=== PATIENT | male | born 1945 | race Caucasian/White ===

== ENCOUNTER → 2017-05-29 | Outpatient (CLI) | payer MEDICARE ==
[~2017-05-29] MED LIST: HEPARIN for IV BOLUS 10,000 UNIT/10 ML VIAL.; IOHEXOL 300 MG/ML 100ML VIAL.; IOHEXOL 350 MG/ML 100 ML VIAL.; IV 1/2 NORMAL SALINE 1,000 ML IV; LIDOCAINE 2% 20 ML VIAL.; MIDAZOLAM HCL/PF 2 MG/2 ML VIAL.; NITROGLYCERIN 200 MCG/2 ML SYRINGE FOR CATH/VASC LAB.; VERAPAMIL 5 MG/2 ML VIAL.; fentaNYL PF VIAL 100 MCG/2 ML VIAL
[2017-05-29 07:03] LABS: HEMATOCRIT 41.9 % (39.0-53.0); HEMOGLOBIN 14.1 g/dL (13.0-17.5); MEAN CORPUSCULAR HEMOGLOBIN 32 pg (25-35); MEAN CORPUSCULAR HGB CONC 34 g/dL (31-37); MEAN CORPUSCULAR VOLUME 94 fL (79-100); PLATELET COUNT 246 x10^3/uL (140-400); RED BLOOD COUNT 4.48 x10^6/uL (4.30-5.70); RED CELL DISTRIBUTION WIDTH 13.5 % (11.5-14.5); WHITE BLOOD COUNT 6.2 x10^3/uL (4.0-11.0)
[2017-05-29 07:08] LABS: ANION GAP 8 (6-14); BLOOD UREA NITROGEN 27 mg/dL (8-26); CALCIUM 8.5 mg/dL (8.5-10.1); CARBON DIOXIDE 27 mmol/L (21-32); CHLORIDE 104 mmol/L (98-107); CREATININE 1.3 mg/dL (0.7-1.3); GFR 54.3; GLUCOSE 102 mg/dL (70-99); POTASSIUM 3.4 mmol/L (3.5-5.1); SODIUM 139 mmol/L (136-145)
[2017-05-29 07:15] LABS: PROTHROMBIN TIME PATIENT 12.9 SEC (11.7-14.0)
[2017-05-29] MEDS: IOHEXOL 350 MG/ML 100 ML VIAL. IART (09:18)
[2017-05-29] MEDS: MIDAZOLAM HCL/PF 2 MG/2 ML VIAL. IV (09:19)
[2017-05-29] MEDS: fentaNYL PF VIAL 100 MCG/2 ML VIAL IV (09:19)
[2017-05-29] MEDS: HEPARIN for IV BOLUS 10,000 UNIT/10 ML VIAL. IART (09:21)
[2017-05-29] MEDS: LIDOCAINE 2% 20 ML VIAL. IJ (09:21)
[2017-05-29] MEDS: VERAPAMIL 5 MG/2 ML VIAL. IART (09:21)
[2017-05-29] MEDS: NITROGLYCERIN 200 MCG/2 ML SYRINGE FOR CATH/VASC LAB. IART (09:21)
[2017-05-29] MEDS: HEPARIN for IV BOLUS 10,000 UNIT/10 ML VIAL. IV (09:22)
== END | disposition home or self-care (01) ==
LOC: CCL 06:33
DX: I25.10 Atherosclerotic heart disease of native coronary artery without angina pectoris (principal); I10 Essential (primary) hypertension; F41.9 Anxiety disorder, unspecified; Z72.89 Other problems related to lifestyle
CPT/HCPCS: 36415; 80048; 85027; 85610; 93458; 93571; 99152; 99153; C1769; C1892; J1644; J2250; J3010; J3490; Q9967

== ENCOUNTER → 2020-08-04 | Outpatient (CLI) | payer MEDICARE ==
[2017-05-29 11:50] VITALS: BP 119/79
[~2020-08-04] MED LIST changes: +ALFU10TA4 PO; +ALPR0.25 PO; +AMLO2.5T2 PO; +ASPI-630 PO; -HEPARIN for IV BOLUS 10,000 UNIT/10 ML VIAL.; -IOHEXOL 300 MG/ML 100ML VIAL.; -IOHEXOL 350 MG/ML 100 ML VIAL.; -IV 1/2 NORMAL SALINE 1,000 ML IV; -LIDOCAINE 2% 20 ML VIAL.; +LIDOCAINE 2%/EPI 1:100,000 20 ML VIAL. INJ ONE; -MIDAZOLAM HCL/PF 2 MG/2 ML VIAL.; -NITROGLYCERIN 200 MCG/2 ML SYRINGE FOR CATH/VASC LAB.; +RANI150T2 PO; +SUCR1TAB PO; -VERAPAMIL 5 MG/2 ML VIAL.; -fentaNYL PF VIAL 100 MCG/2 ML VIAL
--- NOTE | 2020-08-04 16:57 | RAD ---
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 Several microcalcifications identified. There is no evidence of malignancy. Imaging and pathology are concordant. Recommend clinical follow-up to evaluate for causes of gynecomastia. No imaging follow-up is suggeste d in the absence of significant physical exam changes. End of addendum: Electronically signed by: Igor Diaz MD (08/12/2020 4:51 PM) [facility] OR[facility] US GDE NDL BX/ASPIR/INJ/LOC, MG DIAGNOSTICUNILAT MAMMO Clinical Indication: Reason: Right Breast mass Biopsy 900 3 CMFN : Comparison: Bilateral diagnostic mammogram and right breast ultrasound July 21, 2020, [facility]. Findings: There is a small artery just inferior to the target. Lidocaine with epinephrine will be utilized. Procedure: Relative benefits, risks including bleeding, infection, damage to blood vessels, and pain ; and alternatives to the procedure were discussed and written informed consent was obtained. With sterile technique, local anesthesia and ultrasound guidance, percutaneous biopsy was performed w ith a 14-gauge needle and 4 passes were obtained through the target. Needle removed, hemostasis achie barbie. A marker was placed, and post procedure CC and ML views were obtained. The biopsy clip is in the expe cted location, 9:00 A position. The procedure was well tolerated. There is no immediate complication. Impression: Ultrasound guided breast biopsy. Pathology is pending. Electronically signed by: Igor Diaz MD (08/04/2020 4:55 PM) [facility]
--- NOTE | 2020-08-04 16:57 | RAD ---
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 Several microcalcifications identified. There is no evidence of malignancy. Imaging and pathology are concordant. Recommend clinical follow-up to evaluate for causes of gynecomastia. No imaging follow-up is suggeste d in the absence of significant physical exam changes. End of addendum: Electronically signed by: Igor Diaz MD (08/12/2020 4:51 PM) [facility] ORIG[facility]AL [facility] US GDE NDL BX/ASPIR/INJ/LOC, MG DIAGNOSTICUNILAT MAMMO Clinical Indication: Reason: Right Breast mass Biopsy 900 3 CMFN : Comparison: Bilateral diagnostic mammogram and right breast ultrasound July 21, 2020, [facility]. Findings: There is a small artery just inferior to the target. Lidocaine with epinephrine will be utilized. Procedure: Relative benefits, risks including bleeding, infection, damage to blood vessels, and pain ; and alternatives to the procedure were discussed and written informed consent was obtained. With sterile technique, local anesthesia and ultrasound guidance, percutaneous biopsy was performed w ith a 14-gauge needle and 4 passes were obtained through the target. Needle removed, hemostasis achie barbie. A marker was placed, and post procedure CC and ML views were obtained. The biopsy clip is in the expe cted location, 9:00 A position. The procedure was well tolerated. There is no immediate complication. Impression: Ultrasound guided breast biopsy. Pathology is pending. Electronically signed by: Igor Diaz MD (08/04/2020 4:55 PM) [facility]
--- NOTE | 2020-08-07 11:16 | PATHOLOGY ---
[facility] Accession Number: [id number] . 01 Material submitted: . breast - RIGHT BREAST TISSUE. Modifiers: right . 01 Clinical history: . RIGHT BREAST MASS 900 3CM FN . 02 Diagnosis: Breast tissue, right breast mass 9:00 needle biopsies: - Gynecomastia with dense stromal sclerosis, duct ectasia, and focal sclerosing adenosis. - Several microcalcifications identified. (JPM:maite; 08/07/2020) S 08/07/2020 1006 Local . 02 Comment: There is no evidence of malignancy. (JPM:maite; 08/07/2020) . 02 Electronically signed: . Krishna Aguilar MD, Pathologist NPI- [id number] . 01 Gross description: . Received in formalin labeled "Rafy Sigala, Rt breast 900 3 cm FN" are multiple treviño-white cylindrical soft tissue cores measuring in aggregate 2.2 x 1.2 x 0.2 cm. The specimen is submitted entirely in cassettes A1-A3. The specimen is removed from the patient at 1443 and placed in formalin at 1444 on 08/04/2020. The specimen is removed from formalin at 1850 on 08/06/2020. ([facility]; 08/06/2020) SYC/C 08/06/2020 0812 Local . 02 Pathologist provided ICD-10: N62, N60.41, N60.21 . 02 CPT . 669730 Specimen Comment: A courtesy copy of this report has been sent to [phone], [phone] Specimen Comment: [phone], Specimen Comment: Report sent to ,DR EARLY / DR IVY Performed at: 01 [facility] [address], [place], [place] [id number] MD Moncho Nguyễn MD Phone: [phone] Performed at: 02 [facility] [address], [place] [id number] MD Krishna Aguilar MD Phone: [phone]
== END | disposition home or self-care (01) ==
LOC: US 13:50
PROVIDERS: ATTEND Surgery
DX: N63.13 Unspecified lump in the right breast, lower outer quadrant (principal); R92.8 Other abnormal and inconclusive findings on diagnostic imaging of breast; N60.41 Mammary duct ectasia of right breast; N60.21 Fibroadenosis of right breast; I10 Essential (primary) hypertension; K21.9 Gastro-esophageal reflux disease without esophagitis; F41.9 Anxiety disorder, unspecified; Z85.828 Personal history of other malignant neoplasm of skin; Z90.49 Acquired absence of other specified parts of digestive tract; Z98.890 Other specified postprocedural states; Z79.899 Other long term (current) drug therapy; Z79.82 Long term (current) use of aspirin; Z87.891 Personal history of nicotine dependence; Z72.89 Other problems related to lifestyle
CPT/HCPCS: 19083; 77065; 88305; C1713; 76942